=== PATIENT | male | born 1995 | race African-American/Black ===

== ENCOUNTER 2020-05-25 01:38 | Emergency (ER) | payer MEDICAID, OTHER ==
[~2020-05-25] VITALS: Ht 177.8 cm; Wt 82.0 kg
[2020-05-25] MEDS ORDERED: BACITRACIN 15GM TUBE TOP ONE (03:30)
[2020-05-25] MEDS ORDERED: ACETAMINOPHEN 325MG TABLET PO ONE (03:30)
[2020-05-25 04:46] VITALS: BP 111/60
== END 2020-05-25 04:52 | disposition home or self-care (01) ==
LOC: ER 01:38
DX: S80.212A Abrasion, left knee, initial encounter (principal); S80.211A Abrasion, right knee, initial encounter; W01.0XXA Fall on same level from slipping, tripping and stumbling without subsequent striking against object, initial encounter; Y93.89 Activity, other specified; Y92.89 Other specified places as the place of occurrence of the external cause; Y99.8 Other external cause status; F12.10 Cannabis abuse, uncomplicated
CPT/HCPCS: 73590; 99283